=== PATIENT | female | born 1940 | race Caucasian/White ===

== ENCOUNTER 2019-05-17 05:36 | Inpatient (IN) ==
[2019-05-09 13:42] LABS: HEMATOCRIT 32.2 % (37.0-47.0); HEMOGLOBIN 9.9 g/dL (12.0-16.0); MCH 25.2 PG (27-31); MCHC 30.7 g/dL (33-37); MCV 81.9 FL (81-99); RBC 3.93 XMIL (4.2-5.4); RDW 15.7 % (11.5-14.5); WBC 6.83 X1000 (4.8-10.8)
[2019-05-09 13:59] LABS: AGAP 11; BUN 24 mg/dL (8-22); CALCIUM 9.1 mg/dL (8.8-10.2); CHLORIDE 101 mmol/L (98-107); COSMO 272; CREATININE 0.8 mg/dL (0.5-0.9); ESTIMATED GFR > 60; GLUCOSE 90 mg/dL (70-104); POTASSIUM 4.5 mmol/L (3.5-5.1); SODIUM 134 mmol/L (136-145); TCO2 22 mmol/L (25-35)
[2019-05-17] MEDS ORDERED: LR 0 ML ONE (05:54)
[2019-05-17] MEDS ORDERED: ENTEREG ONE ×2 (05:54→06:11)
[2019-05-17] MEDS ORDERED: INVANZ 1 GM/NS 1 GM/50 ML IVPB ONE (06:11)
[2019-05-17] MEDS ORDERED: LR 1,000 ML ONE ×2 (06:11→06:37)
[2019-05-17] MEDS ORDERED: DIPRIVAN 1% ONE (06:30)
[2019-05-17] MEDS ORDERED: NORCURON ONE (06:31)
[2019-05-17] MEDS ORDERED: SODIUM CHLORIDE 0.9% 10 ML ONE (06:31)
[2019-05-17] MEDS ORDERED: XYLOCAINE-MPF 2% ONE (06:31)
[2019-05-17] MEDS ORDERED: QUELICIN (DOSE) ONE ×2 (06:31)
[2019-05-17] MEDS ORDERED: MARCAINE 0.25% PF/EPI 1:200,000 ONE (06:37)
[2019-05-17] MEDS: INVANZ 1 GM/NS 0 GM/0 ML IVPB ONE ×2 (06:57→07:08)
[2019-05-17] MEDS ORDERED: MARCAINE 0.25% ONE (06:58)
[2019-05-17] MEDS ORDERED: EXPAREL 1.3% ONE (06:59)
[2019-05-17] MEDS ORDERED: EPHEDRINE ONE (07:19)
[2019-05-17] MEDS ORDERED: DECADRON ONE (07:26)
[2019-05-17] MEDS ORDERED: ZOFRAN ONE (07:26)
[2019-05-17] MEDS ORDERED: OFIRMEV 1000 MG/ISOTONIC SOLN 1,000 MG/100 ML BOTTLE ONE (07:26)
[2019-05-17] MEDS ORDERED: MORPHINE ONE (08:59)
[2019-05-17 09:59] LABS: URINE SOURCE CATH
[2019-05-17 10:06] LABS: BILIRUBIN URINE NEGATIVE (NEGATIVE); BLOOD URINE NEGATIVE (NEGATIVE); COLOR YELLOW; GLUCOSE URINE NEGATIVE (NEGATIVE); KETONE URINE NEGATIVE (NEGATIVE); LEUKOCYTES URINE NEGATIVE (NEGATIVE); NITRITE URINE NEGATIVE (NEGATIVE); PH URINE 5.5; PROTEIN URINE TRACE mg/dL (NEGATIVE); SP GRAVITY URINE 1.022; TURBIDITY URINE CLEAR (CLEAR); UROBILINOGEN URINE NORMAL (NORMAL)
[2019-05-17 10:08] LABS: UR EPITHELIAL CELLS <10 /HPF (<10); URINE BACTERIA 1+ /HPF; URINE WBC <10 /HPF (<10)
[2019-05-17] MEDS ORDERED: NEOSTIGMINE ONE (10:55)
[2019-05-17] MEDS ORDERED: ROBINUL ONE (10:55)
[2019-05-17] MEDS ORDERED: D5 1/2 NS + KCL 20 MEQ 1,000 ML ONE (11:59)
--- NOTE | 2019-05-17 12:32 | OPERATIVE NOTE ---
PROCEDURE DATE: 05/17/2019 PREOPERATIVE DIAGNOSIS: Colon cancer, cecum. POSTOPERATIVE DIAGNOSIS: Colon cancer, cecum. PRINCIPAL PROCEDURE: Robotic-assisted laparoscopic right hemicolectomy with intracorporeal old anastomosis. SURGEON: Stacy Smyth MD TRAFFIC CIRCUIT ENGINEER: Dariana Kruger MD ANESTHESIA: General in addition to a TAP block and local anesthetic. ESTIMATED BLOOD LOSS: 100 mL. DRAINS: None. INDICATIONS: Ms. Salud aSrmiento is an 79-year-old white female who underwent colonoscopy per Dr. Sevilla which documented a cancer in the cecum. Resection was recommended. FINDINGS: There is no evidence of disease in the liver. She had some adhesions in her gallbladder fossa and some adhesions of the omentum to the ascending colon. We felt we mobilized the right colon nicely with the robot, and we performed a formal right hemicolectomy preserving the middle colic vessels. We performed a side distal ileum to side transverse colon stapled anastomosis. DESCRIPTION OF PROCEDURE: The patient underwent a bowel prep prior to her presentation to outpatient surgery. She was taken to the operating room, where she received general anesthesia, was intubated. Amador catheter tube was placed. She was positioned on the operating room table by our robotic nurses. Her abdomen was prepped and draped within the sterile field. She received IV Invanz prior to surgery. We made a small incision at the umbilicus. Veress needle was introduced intra-abdominally and a pneumoperitoneum was established. She had a prior lower midline incision and also a laparoscopic cholecystectomy. She had a right paramedian incision from an appendectomy years ago. Once we established the pneumoperitoneum, we placed our trocars. I began by placing the camera trocar. This was a 12 mm trocar. We used a 30 degree camera. I then placed the 8 mm trocar in the epigastrium just to the left of the falciform ligament, another 8 mm trocar in the midline just above the pubis. I then placed the stapler port in the left upper quadrant of the abdomen between our camera and epigastric port. I also placed an assist port, which was a 5 mm port in the left lower quadrant of the abdomen, [facility] between our camera port and the suprapubic port. The patient's torso was then extended by extending the kidney rest. She was placed slightly in Trendelenburg and turned to the left. The robot was brought in from the patient's right side. Initially, I used a cadiere grasper and scissors with cautery. I also used a bowel grasper. I took down some adhesions between the greater omentum and between the distal ilium and the ascending colon initially. I then retracted the colon, identified the ileocolic vessels, and made an incision in the mesentery below these vessels using scissors and cautery. I then used the LigaSure to perform the dissection. I got in the right plane where I could lift up the mesentery of the right colon off the retroperitoneum. I encircled the ileocolic vessels, and then I came across them with the LigaSure. Those vessels were transected. There were no problems with bleeding, and I continued my dissection from inferior to superior in the plane between the right colonic mesentery and the retroperitoneum. We had some difficulty at the hepatic flexure because of the previous cholecystectomy and some scarring. I did come across the distal ilium initially with a robotic stapler. We mobilized the cecum and the right colon laterally off the right sidewall, again using the LigaSure, and then when we got to the hepatic flexure we finally created a hole behind the transverse colon where we could come across it again with a robotic stapler. We made sure that the entire right colon and transverse colon were free, and then we placed it above the right lobe of the liver. We brought the distal ileum to our remaining transverse colon. We used ICG to be sure our blood supply was good. We performed an isoperistaltic [id number] stapled anastomosis between the distal ilium and mid transverse colon. We closed the resulting defect with an absorbable 2-0 barbed V-Loc stitch. The first part of this closure was full-thickness stitches from superiorly to inferiorly, and then we went from inferiorly to superiorly with Lembert stitches with the same barbed suture. We did place stay stitches at the apex superiorly and inferiorly so that we could be sure that we closed this defect completely. We were happy with our anastomosis. We were happy with the blood supply after testing it with ICG. We were happy that there was no tension on the anastomosis. We were happy with the sutured closure. At this point, We went back to the bedside. I made a small longitudinal incision in the previous scar suprapubic area, and we brought out our specimen through this incision. The specimen was sent to the pathologist for permanent section. I closed our incisions in layers. The first incision I closed was the 12 mm camera site. I used a [id number] 2-0 Vicryl stitch to close at least the anterior rectus fascia. Then, I closed our lower midline incision in layers. The first layer was a running 0 Vicryl stitch to close the peritoneum and posterior fascia. I closed the anterior fascia with a running number 1 Maxon stitch. I closed all skin with 4-0 Monocryl subcuticular stitches. The patient tolerated the procedure well, with plans for her to go to the recovery room with Amador catheter tube in place. We did not use an NG tube. Then, she will be admitted to the floor. It must be noted that Dr. Roberto Kruger was present throughout the operation. He even got on the robotic console to help with some of the dissection. He was present to help make decisions throughout the dissection and our intracorporeal anastomosis. cc: Stacy Smyth MD [facility]
[2019-05-17] MEDS ORDERED: BSS OPHTH SOLN ONE (12:37)
[2019-05-17] MEDS ORDERED: ZOFRAN IV PRN ×2 (12:45→18:48)
[2019-05-17] MEDS ORDERED: NORCO-10 PO PRN (12:45)
[2019-05-17] MEDS ORDERED: MOTRIN PO SCH (13:00)
[2019-05-17] MEDS: OFIRMEV 1000 MG/ISOTONIC SOLN 1,000 MG/100 ML BOTTLE IV SCH ×2 (15:36→21:24)
[2019-05-17] MEDS: MOTRIN PO SCH ×2 (17:48→22:00)
[2019-05-17] MEDS: D5 1/2 NS + KCL 20 MEQ 1,000 ML IV SCH (21:24)
[2019-05-17] MEDS: PERIDEX MT SCH (21:24)
[2019-05-17] MEDS: CORDARONE PO SCH (21:24)
[2019-05-17] MEDS ORDERED: TEARISOL OPH SOLUTION BOTH EYES PRN (22:11)
[2019-05-18] MEDS ORDERED: SYSTANE EYE DROPS BOTH EYES PRN (00:14)
[2019-05-18] MEDS: D5 1/2 NS + KCL 20 MEQ 1,000 ML IV SCH ×3 (03:35→16:16)
[2019-05-18] MEDS: OFIRMEV 1000 MG/ISOTONIC SOLN 1,000 MG/100 ML BOTTLE IV SCH ×2 (03:36→08:39)
[2019-05-18] MEDS: LOVENOX SUBQ SCH (06:13)
--- NOTE | 2019-05-18 08:19 | PROGRESS NOTE ---
DATE: 05/18/2019 SUBJECTIVE: Ms. Salud Sarmiento is now postop day 1 from a robotic-assisted laparoscopic right colon, with an intracorporeal anastomosis. She is 79 years old, and overall she is doing well. She is awake. She has been tolerating liquids. Her pain is well controlled. OBJECTIVE: Her heart rate is 60, blood pressure 114/54, O2 saturation 98%, she is afebrile. Her trocar sites are dressed. Her abdomen is mostly soft. She has had some flatus. PLAN: Will advance her diet to full liquids. Will discontinue her Amador catheter tube, and will start getting her in the chair. cc: Stacy Smyth MD
[2019-05-18] MEDS: MOTRIN PO SCH ×3 (08:39→20:11)
[2019-05-18] MEDS: PERIDEX MT SCH ×2 (08:39→20:13)
[2019-05-18] MEDS ORDERED: ENTEREG PO SCH (09:00)
[2019-05-18] MEDS: CORDARONE PO SCH (20:11)
[2019-05-18] MEDS ORDERED: LOPRESSOR PO SCH (21:00)
[2019-05-19] MEDS: D5 1/2 NS + KCL 20 MEQ 1,000 ML IV SCH (05:35)
[2019-05-19] MEDS: LOVENOX SUBQ SCH (05:35)
[2019-05-19] MEDS: MOTRIN PO SCH (10:06)
[2019-05-19] MEDS: PERIDEX MT SCH (10:06)
[2019-05-19 12:31] VITALS: BP 140/59
--- NOTE | 2019-05-19 13:36 | DISCHARGE SUMMARY ---
ADMISSION DATE: 05/17/2019 DISCHARGE DATE: 05/19/2019 ADMITTING DIAGNOSIS: Colon cancer, cecum. DISCHARGE DIAGNOSIS: Colon cancer, cecum. PRINCIPAL PROCEDURE: Robotic-assisted laparoscopic right hemicolectomy with intracorporeal anastomosis on 05/17/2019. DISCHARGE DISABILITY: Full. DISCHARGE DIET: Regular. DISCHARGE DISPOSITION: She will return to our outpatient office in 2 weeks. DISCHARGE MEDICATION: She is to return to her home medication except she is going to begin Xarelto this coming Thursday. HOSPITAL COURSE: Ms. Salud Sarmiento is an 79-year-old white female, patient of Dr. Clive Frost and Dr. Sevilla. Recently, she underwent colonoscopy which documented a cecal cancer. We discussed treatment options and chose resection. She underwent a bowel prep prior to her presentation. She presented to outpatient surgery on the day of surgery and underwent a robotic-assisted laparoscopic right hemicolectomy with an intracorporeal anastomosis. We felt the surgery went well, and after surgery she went to the recovery room and then to the [address] [place] [address] [place]. Her postoperative convalescence has been normal. We were quickly able to begin clear liquids. She had flatus on postoperative day 1. She had passed a dark tarry stool on postoperative day 2. She was able to ambulate in her room. She was also able to sit up in a chair and at discharge she was on full liquids. All trocar sites were healing well. Her abdomen was mostly soft. Her heart rate was 59, blood pressure 140/59, O2 saturation 91%. She was afebrile. I spoke with her son and she will be going home with him and his for several days. I felt that it was safe to discharge her home on postoperative day 2 with a followup in my outpatient offices in 2 weeks. They know to contact me with any increasing abdominal distention, pain, nausea and vomiting. They also know to call me with any dizziness or syncope. Her pathology report is pending. cc: MD Neftali Ragsdale MD Khurshid Yousuf, MD
== END 2019-05-19 14:53 | disposition home or self-care (01) | DRG 331 ==
LOC: SURHOLD 05:36 → 4N 07:28
PROVIDERS: ADMIT Surgery; ATTEND Surgery